=== PATIENT | female | born 1990 | race Caucasian/White ===

== ENCOUNTER 2018-02-06 17:56 | Emergency (ER) | payer OTHER ==
[2018-02-06] MEDS: ONDANSETRON 4 MG INJ IV (20:29)
[2018-02-06] MEDS: FAMOTIDINE 20 MG INJ IV (20:30)
[2018-02-06] MEDS: SOD CHLORIDE 0.9% 1,000 ML IV (20:30)
[2018-02-06] MEDS: morphine 4 MG/ML VIAL IV (20:30)
[2018-02-06 20:37] LABS: ADD UMIC YES; UR ASCORBIC ACID NEGATIVE (NEGATIVE); UR BACTERIA FEW /HPF (NONE SEEN); UR BILIRUBIN (Dip) NEGATIVE (NEGATIVE); UR BLOOD (Dip) 2+ mg/dL (NEGATIVE); UR CLARITY CLOUDY (CLEAR); UR COLOR YELLOW (YELLOW); UR GLUCOSE (Dip) NEGATIVE (NEGATIVE); UR KETONES (Dip) 1+ mg/dL (NEGATIVE); UR LEUKOCYTE ESTERASE (Dip) 3+ Leu/ul (NEGATIVE); UR MUCUS FEW /HPF (NONE SEEN); UR NITRITE (Dip) NEGATIVE (NEGATIVE); UR RBC 2 /HPF (0-5); UR SPECIFIC GRAVITY (Dip) 1.017 (1.003-1.030); UR SQUAMOUS EPITHELIAL CELL MANY /HPF (FEW); UR TOTAL PROTEIN (Dip) NEGATIVE (NEGATIVE); UR UROBILINOGEN (Dip) NEGATIVE (NEGATIVE); UR WBC 2 /HPF (0-5)
[2018-02-06 21:02] LABS: ADD MAN DIFF? NO
[2018-02-06 21:04] LABS: WHITE BLOOD COUNT 10.6 10^3/ul (4.8-10.8)
[2018-02-06 21:04] LABS: BASOPHIL # 0.1 10^3/ul (0.0-0.1); BASOPHILS % 0.8 % (0.0-2.0); EOSINOPHILS # 0.1 10^3/ul (0.0-0.5); EOSINOPHILS % 1.1 % (0.0-7.0); HEMATOCRIT 42.6 % (37.0-47.0); HEMOGLOBIN 14.1 g/dl (12.0-16.0); LYMPHOCYTES # 1.9 10^3/ul (0.8-2.9); LYMPHOCYTES % 17.9 % (15.0-51.0); MEAN CORPUSCULAR HEMOGLOBIN 31.5 pg (29.0-33.0); MEAN CORPUSCULAR HGB CONC 33.1 g/dl (32.0-37.0); MEAN CORPUSCULAR VOLUME 95.3 fl (82.0-101.0); MEAN PLATELET VOLUME 8.9 fl (7.4-10.4); MONOCYTE # 0.7 10^3/ul (0.3-0.9); MONOCYTES % 6.3 % (0.0-11.0); NEUTROPHIL # 7.7 10^3/ul (1.6-7.5); NEUTROPHILS % 73.1 % (39.0-77.0); PLATELET COUNT 377 10^3/UL (140-415); RED BLOOD COUNT 4.47 10^6/ul (4.20-5.40); RED CELL DISTRIBUTION WIDTH 13.5 % (11.5-14.5)
[2018-02-06 23:51] LABS: ALANINE AMINOTRANSFERASE 24 IU/L (13-69); ALBUMIN 3.8 g/dl (3.3-4.9); ALBUMIN/GLOBULIN RATIO 1.26; ALKALINE PHOSPHATASE 63 IU/L (42-121); ANION GAP 10 (5-13); ASPARTATE AMINO TRANSFERASE 19 IU/L (15-46); BILIRUBIN,INDIRECT 0.3 mg/dl (0-1.1); BILIRUBIN,TOTAL 0.3 mg/dl (0.2-1.3); BLOOD UREA NITROGEN 7 mg/dl (7-20); CALCIUM 8.3 mg/dl (8.4-10.2); CARBON DIOXIDE 27 mmol/L (21-31); CHLORIDE 103 mmol/L (97-110); Estimated GFR > 60 mL/min (>60); GLUCOSE 88 mg/dl (70-220); LIPASE 58 U/L (23-300); POTASSIUM 4.7 mmol/L (3.5-5.1); SODIUM 140 mmol/L (135-144); TOTAL PROTEIN 6.8 g/dl (6.1-8.1)
== END 2018-02-07 00:47 | disposition home or self-care (01) ==
LOC: FTE 02-07 00:47
DX: K80.20 Calculus of gallbladder without cholecystitis without obstruction (principal); N39.0 Urinary tract infection, site not specified
CPT/HCPCS: 76705; 80053; 81001; 81025; 83690; 85025; 96361; 96374; 96375; 99285-25

== ENCOUNTER 2018-02-14 13:26 | Inpatient (IN) | payer OTHER ==
[2018-02-14] MEDS: SOD CHLORIDE 0.9% 1,000 ML IV ×2 (14:22→19:05)
[2018-02-14 14:23] LABS: ADD MAN DIFF? NO
[2018-02-14] MEDS: ONDANSETRON 4 MG INJ IV ×2 (14:23→23:30)
[2018-02-14] MEDS: HYDROmorphONE 1 MG/ML SYG IV (14:24)
[2018-02-14 14:34] LABS: WHITE BLOOD COUNT 11.6 10^3/ul (4.8-10.8)
[2018-02-14 14:34] LABS: BASOPHIL # 0.1 10^3/ul (0.0-0.1); BASOPHILS % 0.7 % (0.0-2.0); EOSINOPHILS # 0.1 10^3/ul (0.0-0.5); HEMATOCRIT 41.4 % (37.0-47.0); HEMOGLOBIN 13.6 g/dl (12.0-16.0); LYMPHOCYTES # 1.5 10^3/ul (0.8-2.9); LYMPHOCYTES % 12.6 % (15.0-51.0); MEAN CORPUSCULAR HEMOGLOBIN 31.5 pg (29.0-33.0); MEAN CORPUSCULAR HGB CONC 32.9 g/dl (32.0-37.0); MEAN CORPUSCULAR VOLUME 95.8 fl (82.0-101.0); MONOCYTE # 0.4 10^3/ul (0.3-0.9); MONOCYTES % 3.7 % (0.0-11.0); NEUTROPHIL # 9.4 10^3/ul (1.6-7.5); NEUTROPHILS % 81.4 % (39.0-77.0); PLATELET COUNT 373 10^3/UL (140-415); RED BLOOD COUNT 4.32 10^6/ul (4.20-5.40); RED CELL DISTRIBUTION WIDTH 13.6 % (11.5-14.5)
[2018-02-14 14:43] LABS: ADD UMIC YES; UR ASCORBIC ACID 40 mg/dL (NEGATIVE); UR BACTERIA FEW /HPF (NONE SEEN); UR BILIRUBIN (Dip) NEGATIVE (NEGATIVE); UR BLOOD (Dip) NEGATIVE (NEGATIVE); UR CLARITY CLOUDY (CLEAR); UR COLOR YELLOW (YELLOW); UR GLUCOSE (Dip) NEGATIVE (NEGATIVE); UR KETONES (Dip) NEGATIVE (NEGATIVE); UR LEUKOCYTE ESTERASE (Dip) 1+ Leu/ul (NEGATIVE); UR MUCUS FEW /HPF (NONE SEEN); UR NITRITE (Dip) NEGATIVE (NEGATIVE); UR RBC 7 /HPF (0-5); UR SPECIFIC GRAVITY (Dip) 1.021 (1.003-1.030); UR SQUAMOUS EPITHELIAL CELL FEW /HPF (FEW); UR TOTAL PROTEIN (Dip) NEGATIVE (NEGATIVE); UR UROBILINOGEN (Dip) NEGATIVE (NEGATIVE); UR WBC 12 /HPF (0-5)
[2018-02-14 14:51] LABS: ALANINE AMINOTRANSFERASE 20 IU/L (13-69); ALBUMIN 4.4 g/dl (3.3-4.9); ALBUMIN/GLOBULIN RATIO 1.15; ALKALINE PHOSPHATASE 78 IU/L (42-121); ANION GAP 11 (5-13); ASPARTATE AMINO TRANSFERASE 21 IU/L (15-46); BILIRUBIN,INDIRECT 0.2 mg/dl (0-1.1); BILIRUBIN,TOTAL 0.2 mg/dl (0.2-1.3); BLOOD UREA NITROGEN 9 mg/dl (7-20); CALCIUM 9.1 mg/dl (8.4-10.2); CARBON DIOXIDE 29 mmol/L (21-31); CHLORIDE 101 mmol/L (97-110); CREATININE 0.55 mg/dl (0.44-1.00); Estimated GFR > 60 mL/min (>60); GLUCOSE 104 mg/dl (70-220); LIPASE 87 U/L (23-300); POTASSIUM 3.7 mmol/L (3.5-5.1); SODIUM 141 mmol/L (135-144); TOTAL PROTEIN 8.2 g/dl (6.1-8.1)
[2018-02-14] MEDS ORDERED: CEFTRIAXONE 1 GM/50 ML (PMX) 50 ML IVPB (16:30)
[2018-02-14] MEDS: PIPER-TAZO 3.375 GM IV (PMX) 100 ML IVPB (17:03)
[2018-02-14] MEDS: KETOROLAC 15 MG INJ IV (17:03)
[2018-02-14] MEDS ORDERED: ACETAMINOPHEN 325 MG TAB PO ×2 (17:30→18:00)
[2018-02-14] MEDS ORDERED: ONDANSETRON 4 MG INJ IV (17:30)
[2018-02-14 17:59] LABS: INR 0.89; PROTIME 12.2 Sec (11.9-14.9)
[2018-02-14 18:00] LABS: PARTIAL THROMBOPLASTIN TIME 29.1 Sec (23.0-35.0)
[2018-02-14] MEDS ORDERED: ALBUTEROL/IPRATROPIUM (NEB) 3 ML AMP HHN (18:00)
[2018-02-14] MEDS ORDERED: NITROGLYCERIN (SL) 0.4 MG TAB SL (18:00)
[2018-02-14] MEDS ORDERED: DOCUSATE SODIUM 100 MG CAP PO (18:00)
[2018-02-14] MEDS ORDERED: hydrALAzine 20 MG INJ IV (18:00)
[2018-02-14] MEDS ORDERED: LORAZEPAM 2 MG INJ IV (18:00)
[2018-02-14] MEDS ORDERED: morphine 2 MG INJ IV (18:00)
[2018-02-14] MEDS ORDERED: NACL 0.9% 3 ML SYG IV (18:00)
[2018-02-14] MEDS ORDERED: MAGNESIUM HYDROXIDE 30ML CUP PO (18:00)
[2018-02-14 18:18] LABS: FREE T4 (FREE THYROXINE) 0.97 ng/dl (0.79-2.35)
[2018-02-14] MEDS: FAMOTIDINE 20 MG TAB PO (20:20)
[2018-02-14] MEDS: HEPARIN 5,000 UNIT/1 ML VIAL SC (20:23)
[2018-02-14] MEDS: CEFTRIAXONE 1 GM/50 ML (PMX) 50 ML IVPB (20:24)
[2018-02-14] MEDS: morphine SULFATE/PF (2 MG/2 ML) SYG IV (23:19)
[2018-02-15] MEDS: HYDROCODONE/APAP (5/325) TAB PO ×4 (01:45→22:30)
[2018-02-15] MEDS: morphine SULFATE/PF (2 MG/2 ML) SYG IV ×2 (03:08→07:40)
[2018-02-15] MEDS: SOD CHLORIDE 0.9% 1,000 ML IV ×3 (03:42→13:42)
[2018-02-15 06:45] LABS: ADD MAN DIFF? NO
[2018-02-15 06:47] LABS: BASOPHIL # 0.1 10^3/ul (0.0-0.1); BASOPHILS % 0.5 % (0.0-2.0); EOSINOPHILS # 0.1 10^3/ul (0.0-0.5); EOSINOPHILS % 0.6 % (0.0-7.0); HEMATOCRIT 37.3 % (37.0-47.0); HEMOGLOBIN 12.2 g/dl (12.0-16.0); LYMPHOCYTES # 2.4 10^3/ul (0.8-2.9); LYMPHOCYTES % 18.9 % (15.0-51.0); MEAN CORPUSCULAR HEMOGLOBIN 31.5 pg (29.0-33.0); MEAN CORPUSCULAR HGB CONC 32.7 g/dl (32.0-37.0); MEAN CORPUSCULAR VOLUME 96.4 fl (82.0-101.0); MEAN PLATELET VOLUME 10.1 fl (7.4-10.4); MONOCYTE # 0.7 10^3/ul (0.3-0.9); NEUTROPHIL # 9.1 10^3/ul (1.6-7.5); NEUTROPHILS % 73.3 % (39.0-77.0); PLATELET COUNT 299 10^3/UL (140-415); RED BLOOD COUNT 3.87 10^6/ul (4.20-5.40); RED CELL DISTRIBUTION WIDTH 13.3 % (11.5-14.5)
[2018-02-15 06:47] LABS: WHITE BLOOD COUNT 12.4 10^3/ul (4.8-10.8)
[2018-02-15] MEDS ORDERED: CEFAZOLIN 1 GM INJ (07:00)
[2018-02-15] MEDS ORDERED: DESFLURANE 15 MIN (07:00)
[2018-02-15 07:02] LABS: HEMOGLOBIN A1C 5.3 % (0-5.9)
[2018-02-15 07:06] LABS: CHOLESTEROL 134 mg/dl (100-200)
[2018-02-15 07:06] LABS: CHOL/HDL RATIO 2.8 RATIO; HDL CHOLESTEROL 47 mg/dl (34-82); LDL CHOLESTEROL,CALCULATED 67 mg/dl; TRIGLYCERIDES 99 mg/dl (0-149)
[2018-02-15 07:08] LABS: ANION GAP 10 (5-13); BLOOD UREA NITROGEN 5 mg/dl (7-20); CALCIUM 8.4 mg/dl (8.4-10.2); CARBON DIOXIDE 22 mmol/L (21-31); CHLORIDE 105 mmol/L (97-110); CREATININE 0.45 mg/dl (0.44-1.00); Estimated GFR > 60 mL/min (>60); GLUCOSE 87 mg/dl (70-220); MAGNESIUM 2.1 mg/dl (1.7-2.5); PHOSPHORUS 3.2 mg/dl (2.5-4.9); POTASSIUM 4.2 mmol/L (3.5-5.1); SODIUM 137 mmol/L (135-144)
[2018-02-15 07:36] LABS: THYROID STIMULATING HORMONE 0.834 MIU/L (0.465-4.680)
[2018-02-15] MEDS: ONDANSETRON 4 MG INJ IV (07:40)
[2018-02-15] MEDS: FAMOTIDINE 20 MG TAB PO ×2 (09:32→20:28)
[2018-02-15] MEDS: HEPARIN 5,000 UNIT/1 ML VIAL SC ×2 (09:35→20:30)
[2018-02-15] MEDS ORDERED: FENTAnyl 50 MCG/ML VIAL ×2 (11:25→12:59)
[2018-02-15] MEDS ORDERED: MIDAZOLAM 1 MG/ML 2 ML INJ (11:25)
[2018-02-15] MEDS ORDERED: ROCURONIUM 50 MG INJ (11:25)
[2018-02-15] MEDS ORDERED: PROPOFOL 20 ML (11:25)
[2018-02-15] MEDS ORDERED: ROPIVACAINE 0.2% 20 ML VIAL (11:25)
[2018-02-15] MEDS ORDERED: FENTAnyl 50 MCG/ML VIAL IV ×3 (12:30)
[2018-02-15] MEDS ORDERED: LABETALOL HCL 20MG INJ IV (12:30)
[2018-02-15] MEDS ORDERED: ONDANSETRON 4 MG INJ IV ×2 (12:30→14:30)
[2018-02-15] MEDS ORDERED: hydrALAzine 20 MG INJ IV (12:30)
[2018-02-15] MEDS ORDERED: METOCLOPRAMIDE 10 MG INJ IV (12:30)
[2018-02-15] MEDS ORDERED: DIPHENHYDRAMINE 50 MG INJ IV (12:30)
[2018-02-15] MEDS ORDERED: OXYCODONE/ACETAMINOPHEN (5/325) TAB PO (12:30)
[2018-02-15] MEDS ORDERED: HYDROmorphONE 1 MG/5 ML IV SYRINGE IV ×2 (12:30)
[2018-02-15] MEDS ORDERED: EPHEDrine SULFATE 50 MG/5 ML SYG IV (12:30)
[2018-02-15] MEDS ORDERED: KETOROLAC 30 MG INJ (13:06)
[2018-02-15] MEDS ORDERED: DEXAMETHASONE 4 MG/ML 5 ML INJ (13:06)
[2018-02-15] MEDS ORDERED: METOCLOPRAMIDE 10 MG INJ (13:06)
[2018-02-15] MEDS ORDERED: ONDANSETRON 4 MG INJ (13:06)
[2018-02-15] MEDS: BUPIVACAINE 0.5%/EPI (SDV) 30 ML INJ (13:18)
[2018-02-15] MEDS ORDERED: SUGAMMADEX SODIUM 200 MG/2 ML VIAL IV (14:07)
[2018-02-15] MEDS ORDERED: ACETAMINOPHEN 325 MG TAB PO (14:30)
[2018-02-15] MEDS ORDERED: IBUPROFEN 600 MG TAB PO (14:30)
[2018-02-15] MEDS ORDERED: DIPHENHYDRAMINE 25 MG CAP PO (14:30)
[2018-02-15] MEDS: MEPERIDINE 25 MG INJ IV (15:11)
[2018-02-15] MEDS: HYDROmorphONE 1 MG/5 ML IV SYRINGE IV (15:12)
[2018-02-15] MEDS: D5W-0.45 NACL + KCL 20 MEQ 1,000 ML IV (16:45)
[2018-02-15] MEDS: CEFTRIAXONE 1 GM/50 ML (PMX) 50 ML IVPB (18:15)
[2018-02-15] MEDS: KETOROLAC 30 MG INJ IV (19:10)
[2018-02-16] MEDS: D5W-0.45 NACL + KCL 20 MEQ 1,000 ML IV ×3 (00:16→10:16)
[2018-02-16] MEDS: HYDROmorphONE 0.5 MG/0.5 ML SYG IV ×2 (00:53→08:30)
[2018-02-16] MEDS: KETOROLAC 30 MG INJ IV (06:01)
[2018-02-16 06:05] LABS: ADD MAN DIFF? NO
[2018-02-16 06:19] LABS: WHITE BLOOD COUNT 12.5 10^3/ul (4.8-10.8)
[2018-02-16 06:19] LABS: BASOPHILS % 0.3 % (0.0-2.0); HEMATOCRIT 33.3 % (37.0-47.0); HEMOGLOBIN 11.1 g/dl (12.0-16.0); LYMPHOCYTES # 1.8 10^3/ul (0.8-2.9); LYMPHOCYTES % 14.4 % (15.0-51.0); MEAN CORPUSCULAR HEMOGLOBIN 31.6 pg (29.0-33.0); MEAN CORPUSCULAR HGB CONC 33.3 g/dl (32.0-37.0); MEAN CORPUSCULAR VOLUME 94.9 fl (82.0-101.0); MEAN PLATELET VOLUME 9.5 fl (7.4-10.4); MONOCYTES % 7.7 % (0.0-11.0); NEUTROPHIL # 9.6 10^3/ul (1.6-7.5); NEUTROPHILS % 77.1 % (39.0-77.0); PLATELET COUNT 356 10^3/UL (140-415); RED BLOOD COUNT 3.51 10^6/ul (4.20-5.40); RED CELL DISTRIBUTION WIDTH 13.6 % (11.5-14.5)
[2018-02-16 06:36] LABS: ANION GAP 5 (5-13); BLOOD UREA NITROGEN 5 mg/dl (7-20); CALCIUM 8.7 mg/dl (8.4-10.2); CARBON DIOXIDE 25 mmol/L (21-31); CHLORIDE 108 mmol/L (97-110); Estimated GFR > 60 mL/min (>60); GLUCOSE 135 mg/dl (70-220); POTASSIUM 4.1 mmol/L (3.5-5.1); SODIUM 138 mmol/L (135-144)
[2018-02-16] MEDS ORDERED: ENOXAPARIN 40 MG/0.4 ML SYG SC (07:00)
[2018-02-16] MEDS: FAMOTIDINE 20 MG TAB PO (08:30)
[2018-02-16] MEDS: HEPARIN 5,000 UNIT/1 ML VIAL SC (09:02)
[2018-02-16] MEDS: HYDROCODONE/APAP (5/325) TAB PO (13:39)
[2018-02-18] MEDS ORDERED: IBUPROFEN 600 MG TAB PO (20:30)
== END 2018-02-16 15:56 | disposition home or self-care (01) | DRG 418 ==
LOC: FTE 13:26 → 2NE 17:32
PROC: 0FT44ZZ Resection of Gallbladder, Percutaneous Endoscopic Approach (ICD-10-PCS; principal; 2018-02-15 11:30)
DX: K80.10 Calculus of gallbladder with chronic cholecystitis without obstruction (principal); N39.0 Urinary tract infection, site not specified
CPT/HCPCS: 36415; 76705; 80048; 80053; 80061; 81001; 81025; 83036; 83690; 83735; 84100; 84439; 84443; 85025; 85610; 85730; 88304; 96361; 96365; 96375; 99285-25